=== PATIENT | female | born 1950 | race Caucasian/White ===

== ENCOUNTER 2020-10-09 00:02 | Emergency (ER) | payer MEDICARE ==
[~2020-10-09 00:02] MED LIST: ASPIRIN CHEWABL81 MG PO; BACTRIM DS TAB1 EACH PO; FUROSEMIDE 20MG20 MG PO; HUMALOG 75100 UNIT/M SC; LEVAQUIN500 MG PO; LEXAPRO 10MG TA10 MG PO; LIPITOR20 MG PO; LIPITOR40 MG PO; MAG-OXIDE 400M400 MG PO; POTASSIUM CHLO10 ME1 PO; PRILOSEC20 MG PO; PRINIVIL10 MG PO; TENORMIN50 MG PO; TRADJENTA5 MG PO; VITAMIN D1000 UNIT PO; ZOVIRAX800 MG PO
[2020-10-09 00:32] LABS: BASOPHIL 0.5 % (0-2); EOSINOPHIL 0.4 % (0-7); HCT 36.9 % (37.0-47.0); HGB 10.5 g/dl (12.5-16.0); LYMPHOCYTE 53.8 % (15-48); MCH 29.1 pg (25.0-31.0); MCHC 28.5 g/dL (32.0-36.0); MCV 102.2 fL (78.0-100.0); MONOCYTE 3.2 % (0-12); NRBC 0.5; PLT 145 K/uL (150-400); RBC 3.61 M/uL (4.20-5.40); RDW 12.9 % (11.5-14.0); WBC 22.3 K/uL (4.0-10.5)
[2020-10-09 00:34] LABS: NEUTROPHIL 39.7 % (41-80)
[2020-10-09 00:39] LABS: INR 1.57 (0.9-1.2); PROTHROMBIN TIME 17.8 SECONDS (11.4-13.6)
[2020-10-09 01:04] LABS: CKMB 14.2 ng/mL (0.0-3.6)
[2020-10-09 01:07] LABS: ALBUMIN 2.4 g/dL (3.4-5.0); BILIRUBIN - TOTAL 0.3 mg/dL (0.2-1.0); BUN/CREAT RATIO (CALC) 12.1 RATIO; CREATININE 1.07 mg/dL (0.51-0.95); GLOBULIN (CALCULATION) 3.1 g/dL; TOTAL PROTEIN 5.5 g/dL (6.4-8.2)
[2020-10-09 01:08] LABS: BILIRUBIN NEGATIVE (NEGATIVE); BLOOD TRACE-INTACT Ery/uL (NEGATIVE); CLARITY CLEAR (CLEAR); COLOR YELLOW (YELLOW); GLUCOSE (U) 2+ mg/dL (NORMAL); LEUKOCYTES NEGATIVE Leu/uL (NEGATIVE); NITRITE NEGATIVE (NEGATIVE); PROTEIN TRACE (LOW) mg/dL (NEGATIVE); pH 6.5 (5.0-9.0)
[2020-10-09 01:10] LABS: AMPHETAMINES NEGATIVE (NEGATIVE); BARBITURATES NEGATIVE (NEGATIVE); ECSTASY (MDMA) NEGATIVE (NEGATIVE); MARIJUANA (THC) NEGATIVE (NEGATIVE); METHADONE NEGATIVE (NEGATIVE); OPIATES NEGATIVE (NEGATIVE); OXYCODONE NEGATIVE (NEGATIVE)
[2020-10-09 01:12] LABS: SQUAMOUS EPITHELIAL CELLS RARE; URINARY RBC RARE
[2020-10-09 01:17] LABS: LACTIC ACID 18.7 mmol/L (0.4-1.9)
== END 2020-10-09 03:25 | disposition expired ==
LOC: FER 00:02
PROVIDERS: Emergency Medicine Emergency Medical Services
DX: I46.9 Cardiac arrest, cause unspecified (principal); I48.91 Unspecified atrial fibrillation; E11.9 Type 2 diabetes mellitus without complications; I10 Essential (primary) hypertension
CPT/HCPCS: 36415; 36600; 71045; 80053; 80305; 81001; 82550; 82553; 82803; 83605; 83880; 84145; 84484; 85025; 85610; 85730; 87088; 93005; J0171; J0610; J7030